=== PATIENT | female | born 1980 | race Caucasian/White ===

== ENCOUNTER 2017-08-27 07:46 | Emergency (ER) | payer OTHER, MEDICAID ==
[~2017-08-27] VITALS: Ht 162.6 cm; Wt 59.0 kg
[~2017-08-27 07:46] MED LIST: BIAXIN500 MG PO; DARVOCET-N 1001 EACH PO; FLEXERIL10 M1 PO; FLEXERIL10 MG PO; HYDROCODONE1 TABLET PO; IBU600 MG PO; IBUPROFEN 600M600 MG PO; MOTRIN600 MG PO; NYSTATIN SUSPEN60 ML MT; PRENATAL PLUS1 TA1 PO; XANAX 1MG TABLET1 MG PO; ZITHROMAX Z-PA250 M2 PO
--- OUTSIDE RECORDS SUMMARY | 2017-08-27 08:22 | External Medical Summary Rpt | CCD ---
Author Author , KYMBERLY TRAYLOR Address Unknown Phone [email or web address] Care Team Providers Care Effervescent Salts Compounder Name Role Phone [facility] # Unavailable Unavailable [id number], [facility] # [id number] Purpose Continuity of Care Document - 12-28-2009 through 2016 Problems Code Diagnosis DOS Provider Status J01.90 ACUTE SINUSITIS, UNSPECIFIED M79.606 PAIN IN LEG, UNSPECIFIED R10.9 UNSPECIFIED ABDOMINAL PAIN S02.40EA ZYGOMATIC FRACTURE, RIGHT SIDE, INIT S09.93XA UNSPECIFIED INJURY OF FACE, INITIAL ENCOUNTER Allergies, Adverse Reactions, Alerts Type Drug Allergy Adverse Reaction to Substance Substance Reaction Severity Penicillin Unknown Unknown Penicillin G Unknown Unknown Medications Na ND Rx Da Fi Fi Am Da Di Ph RX Ph St me C No te ll ll ou ys ag ar # ys at rm s nt no ma ic us Or Da si cy ia de te s n re d AL 00 04 04 0 90 30 WA 44 CL Ac PA 37 -1 -1 .0 L- 80 AR ti AZ 84 2- 2- 00 MA 44 KE ve OL 00 20 20 RT 7 AM 30 10 10 DE 5 PH RE 0. AR K 5 MA J MG CY # TA BL 10 ET 93 59 04 04 5 17 30 WA 70 CL Ac 36 -1 -1 0. L- 29 AR ti 62 2- 2- 09 MA 82 KE ve 70 20 20 9 RT 0 40 10 10 DE 1 PH RE AR K MA J CY # 10 04 93 AL 00 03 03 0 90 30 WA 44 CL Ac PA 37 -0 -0 .0 L- 79 AR ti AZ 84 9- 9- 00 MA 81 KE ve OL 00 20 20 RT 9 AM 30 10 10 DE 5 PH RE 0. AR K 5 MA J MG CY # TA BL 10 ET 04 93 PA 54 03 03 11 30 30 WA 70 CL Ac RO 45 -0 -0 .0 L- 25 AR ti XE 80 9- 9- 00 MA 74 KE ve TI 98 20 20 RT 6 NE 91 10 10 DE 0 PH RE HC AR K L MA J 20 CY # MG 10 TA 04 BL 93 ET Vital Signs 12-06-2013 14:16 Name Value Interpretat Reference Comment ion Range Body 98.4 [degF] Temperature BP 67 mm[Hg] Diastolic BP Systolic 109 mm[Hg] Heart 117 /min Rate/Pulse O2% 99 % Respiratory 20 /min Rate 12-06-2013 12:00 Name Value Interpretat Reference Comment ion Range BP 68 mm[Hg] Diastolic BP Systolic 122 mm[Hg] Heart 112 /min Rate/Pulse O2% 100 % Respiratory 20 /min Rate Results Labs Lab Lab Date Result Refere Interp Status Commen Order Detail nces retati t Range on Differential panel, method unspecified - (04-12-2017 21:50) Anisocy 1+ complet tosis 017 ed [Presen 21:50 ce] in Blood LYMPH 18 % 10% - Normal complet 017 50% ed 21:50 Platele NORMAL complet ts 017 ed [Presen 21:50 ce] in Blood by Light microsc opy Encounters Encounter Start End Date Code Location Performer Type Date Emergency HOWARD DENG DO (ER) 4 11:39 4 14:[address] [facility]
--- OUTSIDE RECORDS SUMMARY | 2017-08-27 08:22 | External Medical Summary Rpt | CCD ---
Author Author , KYMBERLY TRAYLOR Address Unknown Phone [email or web address] Care Team Providers Care Supervisor Electrolytic Tinning Name Role Phone [facility] # Unavailable Unavailable [id number], [facility] # [id number] Purpose Continuity of Care Document - 12-28-2009 [...] 0 90 30 WA 44 CL Ac AL 37 -1 -1 .0 L- 80 AR [...] 0 90 30 WA 44 CL Ac AL 37 -0 -0 .0 L- 79 AR [...] (ER) 4 11:39 4 14:20 [facility]
--- OUTSIDE RECORDS SUMMARY | 2017-08-27 08:24 | External Medical Summary Rpt | CCD ---
Author Author , KYMBERLY TRAYLOR Address Unknown Phone [email or web address] Care Team Providers Care Account Resolution Analyst Name Role Phone TANNER SAUCEDO, Unavailable Unavailable TANNER SAUCEDO DEREK J, Unavailable Unavailable THERESE JENSEN DOUGLAS, Unavailable Unavailable MARCELINO [facility], Unavailable Unavailable DEPT FOR PUBLIC TH [facility] Unavailable Unavailable CENTER, [facility] Un[facility] Unavailable INC, [facility]available Unavailable [facility] Unavailable Unavailable IM[facility], [facility] Unavailable Unavailable [facility], [facility] MALINDA TEAGUE, Unavailable Unavailable [facility], Unavailable Unavailable PLLC, [facility] Unavailable Unavailable LAB, [facility], Unavailable Unavailable [facility] SOKAN, RUSSEL O, Unavailable Unavailable SOKAN, RUSSEL O [facility], Unavailable Unavailable [facility], [facility]available Unavailable [facility] Unavailable [facility] Unavailable Unavailable #493, [facility]493 [facility] Unavailable Unavailable #591, [facility] #591 [facility] # Unavailable Unavailable [id number], [facility] # [id number] ADOLPH GIMENEZ, Unavailable Unavailable ADOLPH III [facility] Unavailable Unavailable [facility] [place], [facility] [place] Purpose Continuity of Care Document - 08-13-2008 through 2016 Problems Code Diagnosis DOS Provider Status [id number] PAIN IN 04-13-2017 [facility] V22768 PAIN IN LEG 04-13-2017 [facility] UNSPECIFIED INC M7989 OTHER 04-13-2017 [facility] SPECIFIED MEDICAL SOFT TISSUE IMAGING ASS DISORDERS G76431 PAIN IN 04-12-2017 [facility] Z720 TOBACCO USE 04-12-2017 [facility] INC [id number] ZYGOMATIC 01-12-2017 DENTAL FRACTURE RT CLINIC SIDE INITIAL ENC CLOSED FX [id number] STRUCK BY 01-12-2017 [facility] INITIAL ENCOUNTER [id number] UNSPECIFIED 01-07-2017 [facility] FACE INC INITIAL ENCOUNTER L249 IRRITANT 03-21-2016 [facility] DERMATITIS GROUP UNSPECIFIED CAUSE Z0100 ENCOUNTER 03-02-2016 [facility] EXAM EYES & GRE VISION W/O ABNORMAL FIND R079 CHEST PAIN 02-22-2016 [facility] INC R1012 LEFT UPPER 02-22-2016 [facility] PLLC R1084 GENERALIZED 02-22-2016 [facility] ABDOMINAL [facility]ICAL PAIN [facility]ING [facility] Z681 BODY MASS 10-22-2015 DEPT FOR INDEX 19.9 PUBLIC HLTH OR LESS ADULT V154 PERS HX 05-22-2015 DEPT FOR PSYCHOLOGIC PUBLIC HLTH AL TRAUMA PRS [facility] V221 SUPERVISION 02-05-2015 [facility] NORMAL INC V242 ROUTINE 09-16-2014 [facility] FOLLOW-UP V2389 SUPERVISION 09-02-2014 [facility] OTHER SERV HIGH-RISK FOUNDATION V252 STERILIZATI 08-17-2014 [facility] HOSPI 55650 MATERNAL 08-15-2014 [facility] DEPENDENCE [facility]OUND[facility] WITH DELIVERY 88864 OTH 08-15-2014 [facility] KNOWN/SPCT SERV [facility]OUND[facility] ABNORM NEC MGMT MOTH DELIV 58141 UNSPECIFIED 08-15-2014 [facility] TALIPES SERV [facility] 85036 POST TERM 08-14-2014 [facility] ANTEPARTUM [facility]OUNDATION COND/COMPLI CATION 20586 MATERNAL 08-14-2014 [facility] DEPENDENCE [facility] ANTEPARTUM 45269 RHESUS 08-14-2014 [facility] TION UNSPEC HOSPI EPIS CARE PG V270 OUTCOME OF 08-14-2014 [facility] DELIVERY SERV SINGLE FOUNDATION LIVEBORN 64812 HEREDITRY 08-03-2014 [facility] AFFCT FETUS ANTPRTM COND/COMPL 96311 OTH 08-03-2014 [place] [facility] K[facility]OWN/SUSPE SERV CTED FOUNDATION ABNORMALITY -NEC-APC/C V220 SUPERVISION 07-22-2014 [facility] OF NORMAL SERV FIRST FOUNDATION 3670 HYPERMETROP 07-04-2014 MALINDA IA GRE 7965 ABNORMAL 07-01-2014 [facility] HOSPI SCREENING V2633 GENETIC 07-01-2014 [facility] HOSPI V072 NEED FOR 06-04-2014 [place] [facility] PROP[facility] SERV C [facility]ATION IMMUNOTHERA PY V195 FAMILY 06-03-2014 [facility] CONGENITAL ANOMALIES 6164 OTHER 03-19-[address] [facility] [place] 36828 ABNORMAL 01-12-2012 [facility] MATERNAL HEALTH GLUCOSE CLINIC OF [place] [place] ANTEPARTUM V283 ENCOUNTER 12-06-2011 [facility] ROUTINE HEALTH SCREEN CLINIC OF MALFORMATIO [place] N ULTRASONIC 97789 UNSPECIFIED 11-11-2011 ADOLPH III ACUTE AMMY CONJUNCTIVI TIS 07959 UNSPECIFIED 11-11-2011 [facility] CONJUNCTIVI INC TIS 40262 OTH CURRENT 11-11-2011 ADOLPH III MAT CONDS AMMY CLASSIFIABL E ELSW ANTPRTM 2662 OTHER 11-03-2011 [facility] B-COMPLEX HEALTH DEFICIENCIE CENTER S V7242 11-03-2011 [facility] EXAMINATION HEALTH OR TEST CENTER POSITIVE RESULT 7231 CERVICALGIA 10-29-2009 TANNER SAUCEDO 1120 CANDIDIASIS 06-30-2009 [facility] 1220 ECHINOCOCCU 06-30-2009 [facility] EMERGENCY GRANULOSUS SERVICES INFECTION ASSOCIATES OF LIVER 4659 ACUTE URIS 06-30-2009 [facility] EMERGENCY UNSPECIFIED SERVICES SITE ASSOCIATES 7862 COUGH 06-30-2009 [facility] 6160 CERVICITIS 06-22-2009 PATHOLOGY & AND CYTOLOGY ENDOCERVICI LAB TIS V7231 ROUTINE 06-22-2009 [facility] GYNECOLOGIC [facility] AL CLINIC OF EXAMINATION [facility] Medications Na ND Rx Da Fi Fi Am Da Di Ph RX Ph St me C No te ll ll ou ys ag ar # ys at rm s nt no ma ic us Or Da si cy ia de te s n re d IB 53 03 04 12 4 00 HO Ac UP 74 -2 -2 .0 00 ME ti RO 60 0- 1- 00 06 TO ve FE 46 20 20 08 WN N 50 17 17 34 60 5 91 PH 0 AR MG MA CY TA BL OF ET CY NT HI AN A AZ 50 03 04 4. 4 00 HO Ac IT 11 -2 -2 00 00 ME ti HR 10 0- 1- 0 06 TO ve OM 78 20 20 08 WN YC 75 17 17 34 IN 1 92 PH AR 25 MA 0 CY MG OF TA BL CY ET NT HI AN A AL 00 04 04 0 90 30 WA 44 CL Ac NC 37 -1 -1 .0 L- 80 AR ti AZ 84 2- 2- 00 MA 44 KE ve OL 00 20 20 RT 7 AM 30 10 10 DE 5 PH RE 0. AR K 5 MA J MG CY # TA BL 10 ET 04 93 59 04 04 5 17 30 WA 70 CL Ac 36 -1 -1 0. L- 29 AR ti 62 2- 2- 09 MA 82 KE ve 70 20 20 9 RT 0 40 10 10 DE 1 PH RE AR K MA J CY # 10 04 93 AL 00 03 03 0 90 30 WA 44 CL Ac NC 37 -0 -0 .0 L- 79 AR [...] MG 10 TA 04 BL 93 ET AL 00 02 02 00 90 30 WA 44 CL Ac NC 37 -0 -1 .0 L- 79 AR ti AZ 84 5- 1- 00 MA 19 KE ve OL 00 20 20 RT 6 AM 30 10 10 DE 5 PH RE 0. AR K 5 MA J MG CY TA #4 BL 93 ET 00 02 02 00 5. 1 WA 44 WE Ac 40 -0 -1 00 L- 79 HR ti 60 1- 1- 0 MA 11 MA ve 35 20 20 RT 0 N 70 10 10 II 5 PH I AR WI MA LL CY IA M #4 E 93 OX 00 01 01 00 60 20 WA 22 AR Ac YC 40 -0 -1 .0 L- 17 NO ti OD 68 8- 4- 00 MA 35 LD ve ON 51 20 20 RT 2 E 50 10 10 RI HC 1 PH CH L AR AR 15 MA D CY W MG #4 TA 93 BL ET 66 01 01 00 17 30 WA 70 CL Ac 99 -0 -1 0. L- 18 AR ti 30 8- 4- 09 MA 36 KE ve 92 20 20 9 RT 1 60 10 10 DE 6 PH RE AR K MA J CY #4 93 AL 00 11 11 00 90 30 WA 44 CL Ac NC 37 -0 -1 .0 L- 77 AR ti AZ 84 9- 9- 00 MA 39 KE ve OL 00 20 20 RT 6 AM 30 09 09 DE 5 PH RE 0. AR K 5 MA J MG CY TA #4 BL 93 ET PA 54 11 11 00 30 30 WA 70 CL Ac RO 45 -0 -1 .0 L- 10 AR ti XE 80 9- 9- 00 MA 86 KE ve TI 98 20 20 RT 6 NE 91 09 09 DE 0 PH RE HC AR K L MA J 20 CY MG #4 93 TA BL ET AL 00 10 10 00 90 30 WA 44 CL Ac NC 37 -0 -0 .0 L- 76 AR ti AZ 84 1- 8- 00 MA 61 KE ve OL 00 20 20 RT 7 AM 30 09 09 DE 5 PH RE 0. AR K 5 MA J MG CY TA #4 BL 93 ET 59 09 10 00 17 30 WA 70 CL Ac 36 -0 -0 0. L- 02 AR ti 62 1- 8- 09 MA 42 KE ve 70 20 20 9 RT 6 40 09 09 DE 1 PH RE AR K MA J CY #4 93 PA 54 09 10 00 30 30 WA 70 CL Ac RO 45 -0 -0 .0 L- 02 AR ti XE 80 1- 8- 00 MA 42 KE ve TI 98 20 20 RT 5 NE 91 09 09 DE 0 PH RE HC AR K L MA J 20 CY MG #4 93 TA BL ET OC 00 09 10 00 28 28 WA 70 CL Ac EL 55 -0 -0 .0 L- 02 AR ti LA 59 1- 8- 00 MA 42 KE ve 3 13 20 20 RT 4 16 09 09 DE MG 7 PH RE -0 AR K .0 MA J 3 CY MG #4 TA 93 BL ET [place] 00 09 09 00 14 7 [place] [address] 60 -0 -2 0. L- 36 KA ti AT 31 9- 4- 00 MA 11 N ve IN 48 20 20 0 RT 3 BA 14 09 09 BA 10 9 PH TU 0, AR ND 00 MA E 0 CY O UN IT #5 /M 91 L ACOSTA SP CL 60 09 09 00 20 10 WA 70 SO Ac AR 50 -0 -2 .0 L- 36 KA ti IT 52 9- 4- 00 MA 12 N ve HR 61 20 20 RT 6 BA OM 50 09 09 BA YC 6 PH TU IN AR ND MA E 50 CY O 0 MG #5 91 TA BL ET OC 00 09 09 00 28 28 WA 70 CL Ac EL 55 -0 -1 .0 L- 02 AR ti LA 59 1- 0- 00 MA 42 KE ve 3 13 20 20 RT 4 16 09 09 DE MG 7 PH RE -0 AR K .0 MA J 3 CY MG #4 TA 93 BL ET 59 09 09 00 17 30 WA 70 CL Ac 36 -0 -1 0. L- 02 AR ti 62 1- 0- 09 MA 42 KE ve 70 20 20 9 RT 6 40 09 09 DE 1 PH RE AR K MA J CY #4 93 PA 54 09 09 00 30 30 WA 70 CL Ac RO 45 -0 -1 .0 L- 02 AR ti XE 80 1- 0- 00 MA 42 KE ve TI 98 20 20 RT 5 NE 91 09 09 DE 0 PH RE HC AR K L MA J 20 CY MG #4 93 TA BL ET 51 07 07 00 2. 1 WA 69 CA Ac 28 -0 -1 00 L- 95 RP ti 50 8- 6- 0 MA 67 EL ve 76 20 20 RT 4 99 09 09 GE 3 PH RA AR LD MA R CY #4 93 AL 00 10 10 00 30 10 WA 44 WE Ac NC 37 -1 -2 .0 L- 69 ST ti AZ 84 3- 3- 00 MA 63 ve OL 00 20 20 RT 7 RI AM 30 08 08 CH 5 PH AR 0. AR D 5 MA M MG CY TA #4 BL 93 ET Encounters Encounter Start End Date Code Location Performer Type Date [facility] - 7 7 [facility] - 7 7 [facility] - 7 7 [facility] - 6 6 [facility] - 5 5 [facility] [address] UNIVERS[facility] - 4 4 Y [facility] - 4 4 Y [facility] - 2 2 [facility] - 2 2 [facility] - 9 9 [facility]
--- OUTSIDE RECORDS SUMMARY | 2017-08-27 08:24 | External Medical Summary Rpt | CCD ---
Author Author , KYMBERLY TRAYLOR Address Unknown Phone [email or web address] [facility] Care Team Providers Care Sales Recruiting Coordinator Name Role Phone TANNER SAUCEDO, Unavailable Unavailable TANNER SAUCEDO DEREK J, Unavailable Unavailable THERESE JENSEN DOUGLAS, Unavailable Unavailable MARCELINO [facility]HOU [facility], Unavailable Unavailable DEPT FOR PUBLIC TH [facility] Unavailable Unavailable CENTER, [facility] Unavailable Unavailable INC, [facility]available Unavailable [facility] Unavailable Unavailable IM[facility], [facility] Unavailable Unavailable [facility], [facility] MALINDA TEAGUE, Unavailable Unavailable [facility], Unavailable Unavailable PLLC, [facility] Unavailable Unavailable LAB, PATHOLOGY & CYTOLOGY LAB [facility], Unavailable Unavailable [facility] SOKAN, RUSSEL O, Unavailable Unavailable SOKAN, RUSSEL O [facility], Unavailable Unavailable [facility], Unavailable Unavailable [facility] Unavailable [facility] Unavailable Unavailable #493, [facility] #493 [facility] Unavailable Unavailable #591, [facility] #591 [facility] # Unavailable Unavailable [id number], [facility] # [id number] ADOLPH GIMENEZ, Unavailable Unavailable ADOLPH III AMMY [facility] Unavailable Unavailable [facility] [place], [facility] [place] Purpose Continuity of Care Document - 08-13-2008 through 2016 Problems Code Diagnosis DOS Provider Status [id number] PAIN IN 04-13-2017 [facility] [id number] PAIN IN LEG 04-13-2017 [facility] UNSPECIFIED INC M7989 OTHER 04-13-2017 [facility] SPECIFIED [facility] SOFT TISSUE IMAGING ASS DISORDERS G24252 PAIN IN 04-12-2017 [facility] Z720 TOBACCO USE 04-12-2017 [facility] INC [id number] ZYGOMATIC 01-12-2017 DENTAL FRACTURE RT CLINIC SIDE INITIAL ENC CLOSED FX [id number] STRUCK BY 01-12-2017 [facility] INITIAL ENCOUNTER [id number] UNSPECIFIED 01-07-2017 [facility] FACE INC INITIAL ENCOUNTER L249 IRRITANT 03-21-2016 [facility] CON[facility] PHYSICIANS DERMATITIS GROUP UNSPECIFIED CAUSE Z0100 ENCOUNTER 03-02-2016 [facility] EXAM EYES & GRE VISION W/O ABNORMAL FIND R079 CHEST PAIN 02-22-2016 [facility] INC R1012 LEFT UPPER 02-22-2016 [facility] PAIN PLLC R1084 GENERALIZED 02-22-2016 [facility] ABDOMINAL [facility] PAIN IMAGING ASS Z681 BODY MASS 10-22-2015 DEPT FOR INDEX 19.9 PUBLIC HLTH OR LESS ADULT V154 PERS HX 05-22-2015 DEPT FOR PSYCHOLOGIC PUBLIC HLTH AL TRAUMA PRS [facility] V221 SUPERVISION 02-05-2015 [facility] NORMAL INC V242 ROUTINE 09-16-2014 [facility] FOLLOW-UP V2389 SUPERVISION 09-02-2014 [place] [facility] OTHER SERV HIGH-RISK FOUNDATION V252 STERILIZATI 08-17-2014 [facility] 85155 MATERNAL 08-15-2014 [place] [facility] DEPENDENCE FOUNDATION WITH DELIVERY 99756 OTH 08-15-2014 [place] [facility] KNOWN/SPCT SERV [facility]OUNDATION ABNORM NEC MGMT MOTH DELIV 41868 UNSPECIFIED 08-15-2014 [place] [facility] TALIPES SERV [facility] 99548 POST TERM 08-14-2014 [place] [facility] ANTEPARTUM [facility]OUNDATION COND/COMPLI CATION 19328 MATERNAL 08-14-2014 [place] [facility] DEPENDENCE [facility]OUNDATION ANTEPARTUM 94593 RHESUS 08-14-2014 [facility] TION UNSPEC HOSPI EPIS CARE PG V270 OUTCOME OF 08-14-2014 [place] [facility] DELIVERY SERV SINGLE FOUNDATION LIVEBORN 52176 HEREDITRY 08-03-2014 [facility] AFFCT FETUS ANTPRTM COND/COMPL 21136 OTH 08-03-2014 [place] [facility] KNOWN/SUSPE SERV CTED FOUNDATION ABNORMALITY -NEC-APC/C V220 SUPERVISION 07-22-2014 [place] [facility] OF NORMAL SERV FIRST FOUNDATION 3670 HYPERMETROP 07-04-2014 MAL[facility] IA GRE 7965 ABNORMAL 07-01-2014 [facility] ON [facility] HOSPI SCREENING V2633 GENETIC 07-01-2014 [place] [facility] HOSPI V072 NEED FOR 06-04-2014 [place] [facility] PROPHYLACTI SERV C FOUNDATION IMMUNOTHERA PY V195 FAMILY 06-03-2014 [facility] HIST[facility] CONGENITAL ANOMALIES 6164 OTHER 03-19-2012 [facility] CLIN[facility] [place] 28243 ABNORMAL 01-12-2012 [facility] GLUCOSE [facility] [place] ANTEPARTUM V283 ENCOUNTER 12-06-2011 [facility] ROUTINE HEALTH SCREEN CLINIC OF MALFORMATIO [place] N ULTRASONIC 45703 UNSPECIFIED 11-11-2011 ADOLPH III ACUTE AMMY CONJUNCTIVI TIS 12613 UNSPECIFIED 11-11-2011 [facility] CONJUNCTIVI INC TIS 01998 OTH CURRENT 11-11-2011 ADOLPH III MAT CONDS AMMY CLASSIFIABL E ELSW ANTPRTM 2662 OTHER 11-03-2011 [facility] B-COMPLEX HEALTH DEFICIENCIE CENTER S V7242 11-03-2011 [facility] EXAMINATION HEALTH OR TEST CENTER POSITIVE RESULT 7231 CERVICALGIA 10-29-2009 TANNER SAUCEDO 1120 CANDIDIASIS 06-30-2009 [facility] 1220 ECHINOCOCCU 06-30-2009 [facility] EMERGENCY GRANULOSUS SERVICES INFECTION ASSOCIATES OF LIVER 4659 ACUTE URIS 06-30-2009 [facility] EMERGENCY UNSPECIFIED SERVICES SITE ASSOCIATES 7862 COUGH 06-30-2009 [facility] 6160 CERVICITIS 06-22-2009 PATHOLOGY & AND CYTOLOGY ENDOCERVICI LAB TIS V7231 ROUTINE 06-22-2009 [facility] GYNEC[facility]IC [facility] AL CLINIC OF EXAM[facility]ATION [facility] Medications Na ND Rx Da Fi [...] 0 90 30 WA 44 CL Ac W[place] 37 -1 -1 .0 L- 80 AR [...] 0 90 30 WA 44 CL Ac W[place] 37 -0 -0 .0 L- 79 AR [...] 00 90 30 WA 44 CL Ac W[place] 37 -0 -1 .0 L- 79 AR [...] 00 90 30 WA 44 CL Ac W[place] 37 -0 -1 .0 L- 77 AR [...] 00 90 30 WA 44 CL Ac W[place] 37 -0 -0 .0 L- 76 AR [...] 00 30 10 WA 44 WE Ac WY 37 -1 -2 .0 L- 69 ST ti [place] 84 3- 3- 00 MA 63 ve OL 00 20 20 RT 7 RI AM 30 08 08 CH 5 PH AR 0. AR D 5 MA M MG CY TA #4 BL 93 ET Encounters Encounter Start End Date Code Location Performer Type Date [facility] - 7 7 [facility] - 7 7 [facility] - 7 7 [facility] - 6 6 [facility] - 5 5 [facility] [address] UNIVERSIT - 4 4 Y [facility] UNIVERS[facility] - 4 4 Y [facility] M[facility] - 2 2 [facility] M[facility] - 2 2 [facility] - 9 9 [facility]
--- OUTSIDE RECORDS SUMMARY | 2017-08-27 08:25 | External Medical Summary Rpt ---
Author Author [facility] Keyla, [employer] Organization [employer] Address Unknown Phone Unavailable Results CBC W Auto Differential panel in Blood Observa Value Referen Units Interpr Notes Date tion ce etation Range Basophils 0 - 0.2 K/MM3 Normal No Apr 12 informati 2017 9:50 [#/volume on in PM ] in source Blood by data Automated count Basophils 0.1 - 2.0 % Normal No Apr 12 /100 informati 2017 9:50 leukocyte on in PM s in source Blood by data Automated count Eosinophi 0.0 - 0.4 K/mm3 High No Apr 12 ls informati 2017 9:50 [#/volume on in PM ] in source Blood by data Automated count Eosinophi 0.1 - % Normal No Apr 12 ls/100 12.0 informati 2017 9:50 leukocyte on in PM s in source Blood by data Automated count Granulocy 1.8 - 7.8 K/mm3 High No Apr 12 cherelle informati 2017 9:50 [#/volume on in PM ] in source Blood by data Automated count Granulocy 37.0 - % Normal No Apr 12 cherelle/100 80.0 informati 2017 9:50 leukocyte on in PM s in source Blood by data Automated count Hematocri 37.0 - % Normal Apr 12 t [Volume 47.0 informati 2017 9:50 on in PM Fraction] source of Blood data Hemoglobi 12.2 - g/dL No No Apr 12 n 16.2 informati informati 2017 9:50 [Mass/vol on in on in PM ume] in source source Blood data data Lymphocyt 0.7 - 4.5 K/mm3 Normal No Apr 12 es informati 2016 9:50 [#/volume on in PM ] in source Unspecifi data ed specimen by Automated count Lymphocyt 10 - 50.0 % Normal No Apr 12 es informati 2016 9:50 [#/volume on in PM ] in source Unspecifi data ed specimen by Automated count Erythrocy 27 - 31.2 pg High No Apr 12 te mean informati 2016 9:50 corpuscul on in PM ar source hemoglobi data n [Entitic mass] Erythrocy 31.8 - g/dl Normal No Apr 12 te mean 35.4 informati 2017 9:50 corpuscul on in PM ar source hemoglobi data n concentra tion [Mass/vol ume] by Automated count Erythrocy 82.2 - fl Normal No Apr 12 te mean 97.8 informati 2016 9:50 corpuscul on in PM ar volume source [Entitic data volume] by Automated count Monocytes 0.1 - 1.0 K/mm3 Normal No Apr 12 informati 2016 9:50 [#/volume on in PM ] in source Blood by data Automated count Monocytes 1.7 - 9.3 % Normal No Apr 12 / informati 2016 9:50 leukocyte on in PM s in source Blood by data Automated count Platelet 7.4 - fl Normal No Apr 12 mean 10.4 informati 2017 9:50 volume on in PM [Entitic source volume] data in Blood by Automated count Platelets 142 - 424 K/mm3 Normal No Apr 12 informati 2017 9:50 [#/volume on in PM ] in source Blood data Erythrocy 4.2 - 5.4 M/mm3 Low No Apr 12 cherelle informati 2017 9:50 [#/volume on in PM ] in source Amniotic data fluid Erythrocy 11.5 - % Normal No Apr 12 te 17.5 informati 2017 9:50 distribut on in PM ion width source [Entitic data volume] by Automated count Leukocyte 4.8 - K/MM3 High No Apr 12 s 10.8 informati 2016 9:50 [#/volume on in PM ] in source Blood data Differential panel, method unspecified - Observa Value Referen Units Interpr Notes Date tion ce etation Range Anisocy 1+ No No No No Apr 12 tosis informa informa informa informa 2016 [Presen tion in tion in tion in tion in 9:50 PM ce] in source source source source Blood data data data data Eosinophi 0 - 3 % Normal No Apr 12 ls/100 informati 2016 9:50 leukocyte on in PM s in source Blood by data Manual count LYMPH 18 10 - 50 % Normal No Apr 12 inform2016 tion in 9:50 PM source data Platele NORMAL No No No No Apr 12 ts informa informa informa informa 2016 [Presen tion in tion in tion in tion in 9:50 PM ce] in source source source source Blood data data data data by Light microsc opy Neutrophi 42 - 76 % High No Apr 12 ls informati 2016 9:50 [#/volume on in PM ] in source Blood by data Automated count Cells No #CELLS No No Apr 12 Counted informati informati informati 2016 9:50 Total [#] on in on in on in PM in Blood source source source data data data Fibrin D-dimer FEU [Mass/volume] in Platelet poor plasma Observa Value Referen Units Interpr Notes Date tion ce etation Range Fibrin 0 - 400 ng/mL Normal The Apr 12 D-dimer D-Dimer 2016 9:50 FEU values PM [Mass/vol are ume] in presented Platelet in units poor of plasma mass(ng/m L) ofD-Dimer units(DDU ).This test has been FDA approved as an aid in the assessmen tand evaluatio n of suspected DIC, and thromboem bolic eventsinc luding PE and DVT. However, it does not have approvalf or cut-off values for the exclusion of these condition s. Comprehensive metabolic 2000 panel in Serum or Plasma Observa Value Referen Units Interpr Notes Date ti ce etation Range Albumin/G 1.1 - 1.8 No Low No Apr 12 lobulin informati informati 2016 9:50 [Mass on in on in PM ratio] in source source Serum or data data Plasma Albumin 3.4 - 5.0 gm/dL Low No Apr 12 [Mass/vol informati 2016 9:50 ume] in on in PM Serum or source Plasma data Alkaline 46 - 116 U/L Normal No Apr 12 phosphata informati 2016 9:50 se on in PM [Enzymati source c data activity/ volume] in Serum or Plasma Bilirubin 0.2 - 1.0 mg/dL Low No Apr 12 .total informati 2016 9:50 [Mass/vol on in PM ume] in source Serum or data Plasma Urea 7 - 18 mg/dL Normal No Apr 12 nitrogen informati 2016 9:50 [Mass/vol on in PM ume] in source Serum or data Plasma Calcium 8.5 - mg/dL Normal No Apr 12 [Mass/vol 10.1 informati 2016 9:50 ume] in on in PM Serum or source Plasma data Chloride 98 - 107 mmoL/L Normal No Apr 12 [Moles/vo informati 2016 9:50 lume] in on in PM Serum or source Plasma data Carbon 21.0 - mmoL/L Normal No Apr 12 dioxide, 32.0 informati 2016 9:50 total on in PM [Moles/vo source lume] in data Serum or Plasma Creatinin 0.55 - mg/dL Normal No Apr 12 e 1.02 informati 2016 9:50 [Mass/vol on in PM ume] in source Serum or data Plasma Creatinin 50 - 200 ML/MIN Normal No Apr 12 e renal informati 2016 9:50 clearance on in PM source predicted data by Cockcroft -Gault formula Estimated 59- ML/MIN No REFERENCE Apr 12 informati RANGE: 2017 9:50 glomerula on in >60 PM r source ML/MIN/1. filtratio data 73 SQUARE n rate METERSIf (GF this patient is -A merican, then multiply theresult by 1.210. Globulin 1.3 - 3.2 gm/dL High No Apr 12 [Mass/vol informati 2016 9:50 ume] in on in PM Serum source data Glucose 74 - 106 mg/dL Normal No Apr 12 [Mass/vol informati 2016 9:50 ume] in on in PM Serum or source Plasma data Potassium 3.5 - 5.1 mmoL/L Normal No Apr 12 informati 2016 9:50 [Moles/vo on in PM lume] in source Serum or data Plasma Sodium 136 - 145 mmoL/L Normal No Apr 12 [Moles/vo informati 2016 9:50 lume] in on in PM Serum or source Plasma data Aspartate 15 - 37 U/L Low No Apr 12 informati 2017 9:50 aminotran on in PM sferase source [Enzymati data c activity/ volume] in Serum or Plasma Alanine 12 - 78 U/L Normal No Apr 12 aminotran informati 2016 9:50 sferase on in PM [Enzymati source c data activity/ volume] in Serum or Plasma Protein 6.4 - 8.2 gm/dL Normal No Apr 12 [Mass/vol informati 2016 9:50 ume] in on in PM Serum or source Plasma data
--- OUTSIDE RECORDS SUMMARY | 2017-08-27 08:25 | External Medical Summary Rpt | CCD ---
Demographics Preferred Language Mohawk Marital Status Unknown Congregational Affiliation Unknown Race Unknown Ethnic Group Unknown Author Author , [facility] TRAYLOR Address Unknown Phone Immunization No patient found.
--- OUTSIDE RECORDS SUMMARY | 2017-08-27 08:25 | External Medical Summary Rpt | CCD ---
Demographics Preferred Language Italian Marital Status Unknown Catholic Affiliation Unknown Race Unknown Ethnic Group Unknown Author Author , KY[facility] TRAYLOR Address Unknown Phone Immunization No patient found.
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
[2017-08-27 09:24] VITALS: BP 106/56
== END 2017-08-27 09:28 ==
LOC: ER 07:46
DX: S09.90XA Unspecified injury of head, initial encounter (principal); V87.7XXA Person injured in collision between other specified motor vehicles (traffic), initial encounter; F17.210 Nicotine dependence, cigarettes, uncomplicated; Z88.0 Allergy status to penicillin; M25.512 Pain in left shoulder